=== PATIENT | female | born 1980 | race Caucasian/White ===

== ENCOUNTER 2024-03-31 13:38 | Outpatient (CLI) | payer MEDICAID | END 2024-03-31 13:39 | disposition critical access hospital (66) | LOC: EMS 13:38 | DX: K62.5 Hemorrhage of anus and rectum (principal) | CPT/HCPCS: A0425; A0429; A0999 ==

== ENCOUNTER 2024-03-31 14:00 | Emergency (ER) | payer MEDICAID ==
--- NOTE | 2024-03-31 14:32 | ED Physician Documentation ---
History of Present Illness - Stated complaint Stated Complaint: RECTAL BLEED - Chief complaint Chief Complaint: General - Additonal information Additional information: 43-year-old female with history of alcohol dependence and recent dog bite injury to left upper thigh as well as cholecystectomy presents emergency department for rectal bleeding. Patient says that she checked into [facility] for alcoholic dependence and alcohol withdrawal and they were asking her about her bowel movements and she reported that she was having some rectal bleeding and they sent her to the emergency department for further evaluation. Patient said that she also wanted to have her dog bite evaluated on her left upper thigh to make sure that it was healing and not appearing to get infected. She was bit by a friend's dog this weekend and 3 sutures were placed in her left thigh loosely and patient is on Augmentin. No fevers or chills no abdominal pain no nausea or vomiting. Patient is not on any blood thinners. 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 : None HEENT: None Psych: None Musculoskeletal: None Derm: None - Past Surgical History Past Surgical History: Yes General: Cholecystectomy Ortho: Other - Present Medications Home Medications: Ambulatory Orders Medication Instructions Recorded Confirmed Acetaminophen [Tylenol] 1,000 mg PO Q4-6H 03/31/24 03/31/24 Amox/Clav 875/125 [Augmentin 1 tablet PO Q12H 03/31/24 03/31/24 875/125 Tab] Bismuth Subsalicylate [Bismuth] 524 mg PO DAILY 03/31/24 03/31/24 Dicyclomine [Bentyl] 10 mg PO Q6HR 03/31/24 03/31/24 Docusate Sodium [Dok] 100 mg PO BID 03/31/24 03/31/24 Gabapentin [Neurontin] 300 mg PO TID 03/31/24 03/31/24 LORazepam [Ativan] 1 mg PO QID 03/31/24 03/31/24 Vit B Comp/Folic/Choline/Inosi 1 each PO DAILY 03/31/24 03/31/24 [Super B-50 Complex Capsule] bisacodyL [Laxative] 5 mg PO DAILY 03/31/24 03/31/24 cloNIDine [Catapres] 0.1 mg PO Q4HR 03/31/24 03/31/24 diphenhydrAMINE [Benadryl] 25 mg PO HS 03/31/24 03/31/24 - Allergies Allergies/Adverse Reactions: Allergies Allergy/AdvReac Type Severity Reaction Status Date / Time No Known Drug Allergies Allergy Verified 03/31/24 14:08 - Social History Does the pt smoke?: Yes Smoking Status: Current every day smoker Does the pt drink ETOH?: Yes Does the pt have substance abuse?: No - Immunizations Immunizations are current?: No - POLST Patient has POLST: No PD ED PE NORMAL - Vitals Vital signs reviewed: Yes - General General: Alert and oriented X 3, No acute distress, Well developed/nourished - HEENT HEENT: Atraumatic - Cardiac Cardiac: RRR - Respiratory Respiratory: No respiratory distress, Clear bilaterally - Abdomen Abdomen: Normal bowel sounds, Soft, Non tender, Non distended, No organomegaly - Derm Derm: Other (left anterior upper thigh laceration) - Extremities Extremities: No edema, No calf tenderness / cord - Psych Psych: Normal mood, Normal affect PD ED PE EXPANDED - Rectal Rectal: Maintenance Of Way Clerk present (GABBY De Leon present). No: Mass, Hemorrhoid, Fissure Results - Vitals Vitals: Vital Signs - 24 hr 03/31/24 03/31/24 03/31/24 14:04 16:07 17:16 Temperature 36.3 C L 36.4 C L Heart Rate 68 58 L 60 Respiratory 16 14 14 Rate Blood Pressure 139/95 H 139/85 H 144/87 H O2 Saturation 98 95 98 Oxygen O2 Source Room air - Labs Labs: Laboratory Tests 03/31/24 03/31/24 14:38 14:38 WBC 4.5 L RBC 3.16 L Hgb 11.2 L Hct 32.8 L MCV 103.8 H MCH 35.4 H MCHC 34.1 RDW 15.1 H Plt Count 142 MPV 9.1 Neut # (Auto) 2.2 Lymph # (Auto) 1.8 Towner # (Auto) 0.4 Eos # (Auto) 0.1 Baso # (Auto) 0.0 Absolute Nucleated RBC 0.00 Nucleated RBC % 0.0 Sodium 135 Potassium 2.7 L Chloride 98 L Carbon Dioxide 31 Anion Gap 6.0 BUN 6 Creatinine 0.5 L Estimated GFR (MDRD) 134 Glucose 84 Calcium 8.8 Magnesium 1.3 L Total Bilirubin 0.5 AST 161 H ALT 109 H Alkaline Phosphatase 156 H Total Protein 5.6 L Albumin 3.6 Globulin 2.0 L Albumin/Globulin Ratio 1.8 Lipase < 10 L - Rads (name of study) Abdomen pelvis CT with con Relevant Findings:: Final report received, EMP independent interpretation of test, Other (Moderate volume of gas in the distal colon and rectum no acute other abnormalities or findings. Mild distal esophageal wall thickening) PD Medical Decision Making - ED course ED course: 43-year-old female presents emergency department for rectal bleeding and to have her wound evaluated from recent dog bite injury. In regards to the dog bite injury the wound does not appear to be infected no purulent drainage no erythema it is not at the touch. There are 3 stitches intact wound is open and loosely approximated. Wound was cleansed with normal saline patient was informed that it is okay for her to get this wet and wash with soap and water to pat it dry and bacitracin was applied over the wound patient was told to keep it covered. In regards to patient's rectal bleeding. Labs are complete for further evaluation and she did not appear to have any significant anemia requiring blood transfusion. Unfortunately do not have patient's baseline labs. White count is slightly suppressed at 4.5, hemoglobin 11.2, hematocrit 32.8 elevated MCV this is most likely chronic macrocytic anemia due to her alcoholism. Potassium is quite suppressed at 2.7 again I do not have patient's baseline but she denies any chest pain or shortness of breath. 40 mEq of oral potassium was given for replacement she also has hypomagnesemia 1.3 she was given 2 g IV magnesium for replacement as well. AST, ALT, alk phos all elevated most likely due to alcohol dependence. CT abdomen pelvis is complete for further evaluation and revealed a large amount of gas to the rectum and distal colon and esophagitis at the distal portion of her esophagus. No obvious findings as to what is causing patient's rectal bleeding but could be related to an internal fissure. At this point time I do not believe any further workup is indicated she is safe for discharge return precautions given patient told to have her labs reevaluated in about a week and was taught how to increase magnesium and potassium in her diet at [facility]. Departure - Departure Disposition: 01 Home, Self Care Clinical Impression: Rectal bleeding, Hypomagnesemia, Hypokalemia Instructions: Hypokalemia Dc, ED Diet High Potassium, ED Hematochezia Stable Comments: . Thank you for trusting us with your care. We have completed a CT scan and labs done that your potassium magnesium are very low. We have replaced them here in the ER but make sure that you follow-up with primary care provider to have your labs reevaluated In about a week. You do appear to be constipated and would make sure that you are drinking plenty of fluids and getting plenty of activity and exercise to help regulate bowel movement also consider adding MiraLAX. Please come back to the ER if you are having any chest pain shortness of breath or any other worsening symptoms. Forms: PCP List
[2024-03-31 14:43] LABS: BASOPHILS % (AUTO) 0.4 %; EOSINOPHILS # (AUTO) 0.1 10^3/uL (0.0-0.7); EOSINOPHILS % (AUTO) 2.7 %; HCT - HEMATOCRIT 32.8 % (37.0-47.0); HGB - HEMOGLOBIN 11.2 g/dL (12.0-16.0); LYMPHOCYTES # (AUTO) 1.8 10^3/uL (1.5-3.5); LYMPHOCYTES % (AUTO) 39.7 %; MEAN CORPUSCULAR HEMOGLOBIN 35.4 pg (27.0-31.0); MEAN CORPUSCULAR HGB CONC 34.1 g/dL (32.0-36.0); MEAN CORPUSCULAR VOLUME 103.8 fL (81.0-99.0); MEAN PLATELET VOLUME 9.1 fL (7.9-10.8); MONOCYTES # (AUTO) 0.4 10^3/uL (0.0-1.0); MONOCYTES % (AUTO) 8.9 %; NEUTROPHILS # (AUTO) 2.2 10^3/uL (1.5-6.6); NEUTROPHILS % (AUTO) 48.1 %; PLT - PLATELET COUNT 142 10^3/uL (130-450); RED BLOOD COUNT 3.16 10^6/uL (4.20-5.40); RED CELL DISTRIBUTION WIDTH 15.1 % (12.0-15.0); WHITE BLOOD COUNT 4.5 x10^3/uL (4.8-10.8)
[2024-03-31 14:56] LABS: ALBUMIN 3.6 g/dL (3.2-5.5); ALBUMIN/GLOBULIN RATIO 1.8 (1.0-2.2); ALKALINE PHOSPHATASE 156 IU/L (42-121); ALT ALANINE AMINOTRANSFERASE 109 IU/L (10-60); AST ASPARTATE AMINOTRANSFERASE 161 IU/L (10-42); BILIRUBIN,TOTAL 0.5 mg/dL (0.2-1.0); BUN - BLOOD UREA NITROGEN 6 mg/dL (6-20); CALCIUM 8.8 mg/dL (8.5-10.3); CARBON DIOXIDE - CO2 31 mmol/L (21-32); CHLORIDE 98 mmol/L (101-111); CREATININE 0.5 mg/dL (0.6-1.3); GFR - MDRD 134 (>89); GLUCOSE 84 mg/dL (74-104); MAGNESIUM 1.3 mg/dL (1.7-2.3); POTASSIUM 2.7 mmol/L (3.5-4.5); SODIUM 135 mmol/L (135-145); TOTAL PROTEIN 5.6 g/dL (6.4-8.9)
[2024-03-31 15:04] LABS: LIPASE < 10 U/L (11-82)
[2024-03-31] MEDS ORDERED: iohexoL-300 100 ML VIAL ONE (15:06)
[2024-03-31] MEDS: iohexoL-300 100 ML VIAL IVP ONE (15:20)
--- NOTE | 2024-03-31 15:58 | CT Report ---
PROCEDURE: Abdomen/Pelvis W INDICATIONS: rectal bleeding CONTRAST: 100ml [id number] TECHNIQUE: After the administration of intravenous contrast, a CT scan of the abdomen and pelvis was performed. Images were recorded and evaluated at appropriate window settings. Reformats: coronal and sagittal. F or radiation dose reduction, the following was used: automated exposure control, adjustment of mA and /or kV according to patient size. COMPARISON: None. FINDINGS: Image quality: Diagnostic Lower chest: Basal atelectasis/scarring. Mild distal esophageal wall thickening is nonspecific. Andie l heart size Liver: Unremarkable Gallbladder and biliary system: Mildly distended biliary system likely related to postcholecystectomy state. Correlate with LFTs. Pancreas: No ductal dilation Spleen: Nonenlarged Adrenals: No discrete nodule Kidneys: No solid mass or hydronephrosis Vessels and lymph nodes: The main portal vein is patent. No abdominal aortic aneurysm or pathologic l ymph nodes by size criteria. Bowel and peritoneum: There is mild proximal gastric wall thickening, not well assessed due to underd istention. No acute small bowel obstruction. Moderate volume of gas is seen in the distal colon, and rectum. No pathologic ascites or drainable abscess. The appendix is nondilated. Body wall: Unremarkable. Tiny fat-containing umbilical hernia Pelvis: Bladder is underdistended. Reproductive organs are not well evaluated on this study. No gross abnormality. Consider ultrasound if there is concern Bones: Mild degenerative changes, no acute or suspicious finding. IMPRESSION: There is a moderate volume of gas in the distal colon and rectum. No acute abnormality otherwise. 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 Mild distal esophageal wall thickening and proximal gastric wall thickening, not well assessed on thi s study, possibly represent gastroesophagitis. Endoscopy could also evaluate if needed. Other findings above. Reviewed by: Constantino Carl MD on 03/31/2024 3:57 PM PDT Approved by: Constantino Carl MD on 03/31/2024 3:57 PM PDT Station ID: [id number]
[2024-03-31] MEDS: POTASSIUM CHLORIDE 20 MEQ TABLET PO STA (16:13)
[2024-03-31] MEDS: MAGNESIUM SULFATE 1 GM/2 ML VIAL IVP STA (16:13)
[2024-03-31] MEDS: BACITRACIN ZINC OINT 1 PACKET TOP STA (17:11)
[2024-03-31] MEDS: hydrOXYzine PAMOATE 25 MG CAPSULE PO STA (17:13)
[2024-03-31 17:28] VITALS: BP 144/87; O2SAT 98
== END 2024-03-31 18:48 | disposition home or self-care (01) ==
LOC: ED 14:00
DX: K62.5 Hemorrhage of anus and rectum (principal); E83.42 Hypomagnesemia; E87.6 Hypokalemia; F17.200 Nicotine dependence, unspecified, uncomplicated
CPT/HCPCS: 36415; 74177; 80053; 83690; 83735; 85025; 96374; 99283; 99284; A9270; Q9967